=== PATIENT | female | born 1985 | race Caucasian/White ===

== ENCOUNTER 2017-05-27 14:23 | Outpatient (CLI) | payer MEDICAID | END 2017-05-27 14:24 | disposition home or self-care (01) | LOC: MADLAB 14:23 | PROVIDERS: ATTEND Obstetrics & Gynecology | DX: O20.0 Threatened abortion (principal) | CPT/HCPCS: 36415; 84702 ==

== ENCOUNTER 2017-05-29 12:21 | Outpatient (CLI) | payer MEDICAID | END 2017-05-29 12:22 | disposition home or self-care (01) | LOC: MADLAB 12:21 | PROVIDERS: ATTEND Obstetrics & Gynecology | DX: O20.0 Threatened abortion (principal) | CPT/HCPCS: 36415; 84702 ==